=== PATIENT | female | born 1995 | race Caucasian/White ===

== ENCOUNTER 2023-05-31 14:50 | Outpatient (CLI) | payer OTHER | END 2023-05-31 14:51 | disposition home or self-care (01) | LOC: LAB.N 14:50 | PROVIDERS: ATTEND Nurse Practitioner | DX: O09.813 Supervision of pregnancy resulting from assisted reproductive technology, third trimester (principal) | CPT/HCPCS: 36415; 82950 ==

== ENCOUNTER 2023-06-03 11:40 | Outpatient (CLI) | payer OTHER ==
--- NOTE | 2023-06-04 15:11 | Ultrasound Report ---
PROCEDURE: OB F/U or Repeat INDICATIONS: UTERINE SIZE DATE DISCREPENCY OUTSIDE/PRIOR DATING DATA: Last menstrual period (LMP): IVF (all previous exams done in [place]). IVF-based estimated date of delivery (RENNY): 07/29/2023 (per report). First dating scan (date and location): 06/03/2023 ([facility]). Estimated date of delivery (RENNY) from first dating scan: 07/28/2023. TECHNIQUE: Real-time scanning was performed of the fetus, with image documentation and biometric measurements. Endovaginal scanning: Not performed. COMPARISON: None. FINDINGS: General: A single living intrauterine gestation is present. Presentation: Breech Placenta: Placental position is anterior, without previa. Amniotic fluid index: 19.2 cm, within normal limits for gestational age (79%). heart rate: 145 beats per minute. Maternal cervical canal: 4.4 cm long and closed; normal length is 2.5 cm or more. biometrics: Biparietal diameter: 8.25 cm, 33 weeks and 1 day Head circumference: 30.47 cm, 33 weeks and 6 days Abdominal circumference: 28.02 cm, 32 weeks and 0 days Femur length: 5.63 cm, 29 weeks and 4 days Estimated gestational age from initial scan: 32 weeks and 1 day Composite gestational age from present scan: 32 weeks and 0 days Estimated weight and percentile: 1796.2 g, 26.4% Measurement variability in biometric dating: +/- 10 days from 12-20 weeks gestation, +/- 2 weeks from 20-30 weeks gestation, +/- 3 weeks at 30 weeks gestation or more. Other: The chest/diaphragm, stomach/abdomen, bilateral renal regions, placental cord insertion, urina ry bladder/pelvis are grossly within normal limits. The remainder of the anatomy was not examin ed. The bilateral ovaries are unremarkable. The placenta cord index is 2.25. The mid placenta cord index is 1.89. The abdomen placenta cord index is 2.06. IMPRESSION: 1. Single living intrauterine gestation in breech presentation. Placenta is anterior without previa. Normal amniotic fluid. 2. Estimated gestational age from present scan is 32 weeks and 0 days. Fetus is in the 26.4th percent ile for weight. 3. Limited anatomic survey is normal, as described above. Reviewed by: Tanya Waddell MD on 06/04/2023 3:10 PM PDT Approved by: Tanya Waddell MD on 06/04/2023 3:10 PM PDT Station ID: [id number]
== END 2023-06-03 11:41 | disposition home or self-care (01) ==
LOC: DI 11:40
PROVIDERS: ATTEND Nurse Practitioner
DX: O26.843 Uterine size-date discrepancy, third trimester (principal); Z3A.32 32 weeks gestation of pregnancy

== ENCOUNTER 2023-07-02 06:45 | Outpatient (CLI) | payer OTHER ==
--- NOTE | 2023-07-02 08:58 | PROVIDER PROGRESS NOTE ---
- HPI Chief Complaint: Decreased movement Current : Vital Signs Temperature 98.1 F 07/02/23 07:06 Heart Rate 103 H 07/02/23 07:06 Respiratory Rate 18 07/02/23 07:06 Blood Pressure 118/87 H 07/02/23 07:06 Temperature 98.1 F 07/02/23 07:06 Heart Rate 103 H 07/02/23 07:06 Respiratory Rate 18 07/02/23 07:06 Blood Pressure 118/87 H 07/02/23 07:06 O2 Saturation If not protocol: Oxygen Flow, liters/minute - Procedures OB Procedure Performed: NST Diagnosis/Indication for NST: Decreased movement NST Procedure: NST at 36 weeks for decreased movement 140, moderate variability, positive accelerations, no decelerations Reactive NST Service Date of procedure: 07/02/23 - Plan Plan: Patient is a G1, P0 presenting at 36 weeks for decreased movement. She states she has been feeling baby move but movements have not been as strong as they were previously. She denies contractions, vaginal bleeding, leakage of fluid. This is an IVF . She is scheduled for weekly NSTs starting this week. NST on labor and delivery is reactive and biophysical profile is 8 out of 8. I reviewed kick counting with patient and advised to return to labor and delivery at any time for decreased movement, vaginal bleeding, contractions, leakage of fluid, or any other concerns.
--- NOTE | 2023-07-02 09:03 | Ultrasound Report ---
PROCEDURE: OB Biophysical Profile INDICATIONS: Decrease FM OUTSIDE/PRIOR DATING DATA: Last menstrual period (LMP): IVF. LMP-based estimated date of delivery (RENNY): 07/29/2023 based on IVF previous records not available for comparison. First dating scan (date and location): 06/03/2023. Estimated date of delivery (RENNY) from first dating scan: 07/28/2023. TECHNIQUE: Real-time scanning was performed of the fetus, with image documentation and biometric edgar surements. Biophysical profile was also obtained. COMPARISON: 06/03/2023 FINDINGS: General: A single living intrauterine gestation is present. Presentation: Vertex Placenta: Placental position is anterior, without previa. Amniotic fluid index: 10.5 cm, within normal limits for gestational age. heart rate: 147 beats per minute. Maternal cervical canal: 3.6 cm long; normal length is 2.5 cm or more. biometrics: Estimated gestational age from initial scan: 36 weeks 2 days Biophysical profile: Tone: 2 points. Movement: 2 points. Respiration: 2 points. Largest pocket of fluid: 2 points. Umbilical artery Doppler: 2.2, 2.1, 1.7 IMPRESSION: Single live intrauterine with gestational age 36 weeks 2 days. BPP 8 out of 8 Reviewed by: Mari Hernandez MD on 07/02/2023 9:02 AM PST Approved by: Mari Hernandez MD on 07/02/2023 9:02 AM PST Station ID: [id number]
[2023-07-02 10:03] VITALS: BP 118/84; O2SAT 100
== END 2023-07-02 09:10 | disposition home or self-care (01) ==
LOC: WFO 06:45 → FBP 07:03 → WFO 09:10
PROVIDERS: ATTEND Obstetrics & Gynecology Obstetrics
DX: O36.8130 Decreased fetal movements, third trimester, not applicable or unspecified (principal); O09.813 Supervision of pregnancy resulting from assisted reproductive technology, third trimester; Z3A.36 36 weeks gestation of pregnancy
CPT/HCPCS: 59025; 99213; 99215

== ENCOUNTER 2023-07-05 14:59 | Outpatient (CLI) | payer OTHER ==
--- NOTE | 2023-07-05 18:17 | Ultrasound Report ---
PROCEDURE: OB Biophysical Profile INDICATIONS: IVF OUTSIDE/PRIOR DATING DATA: IVF Clinical estimated date of delivery (RENNY): 07/29/2023. First dating scan (date and location): 06/03/2023. Estimated date of delivery (RENNY) from first dating scan: 07/28/2023. The below data below was generated using the sonographic RENNY of 07/28/2023 TECHNIQUE: Real-time scanning was performed of the fetus, with image documentation. Biophysical pro file was also obtained. Endovaginal scanning: Not performed COMPARISON: 06/03/2023, 07/02/2023 FINDINGS: General: A single living intrauterine gestation is present. Presentation: Cephalic Placenta: Placental position is anterior, without previa. Amniotic fluid index: 12.6 cm, largest pocket is 3.7 cm, normal for gestational age. heart rate: 123 beats per minute. Maternal cervical canal: Not well seen Biophysical profile: Tone: 2 points. Movement: 2 points. Respiration: 2 points. Largest pocket of fluid: 2 points. Umbilical artery Doppler: 3.3, 2.36, 3.0 IMPRESSION: 1. Single living intrauterine . 2. Normal biophysical profile score, 8 out of 8. 3. Normal amniotic fluid volume. Reviewed by: Merary Jackson MD on 07/05/2023 6:15 PM PST Approved by: Merary Jackson MD on 07/05/2023 6:15 PM PST Station ID: [id number]
== END 2023-07-05 15:00 | disposition home or self-care (01) ==
LOC: DI 14:59
PROVIDERS: ATTEND Nurse Practitioner
DX: O09.813 Supervision of pregnancy resulting from assisted reproductive technology, third trimester (principal); Z3A.00 Weeks of gestation of pregnancy not specified

== ENCOUNTER 2023-07-05 15:23 | Outpatient (CLI) | payer OTHER ==
--- NOTE | 2023-07-05 15:50 | Labor Flowsheet ---
Labor Flowsheet Datetime Report Generated by CPN: 07/05/2023 15:50 Datetime: 07/05/2023 15:41 VITAL SIGNS NBP Sys/Sade/Mean (mmHg): 123 : 81 : 89 Pulse: 77 COMMUNICATION LaborFlag: Antepartum
[2023-07-05 16:20] VITALS: BP 123/81
--- NOTE | 2023-07-17 14:01 | PROCEDURE REPORT ---
- HPI Diagnosis/Indication for NST: Other Current EDU 07/29/23 Gestation 36 Weeks and 4 Days 1 Para 0 Vital Signs Temperature 98.4 F 07/05/23 16:02 Heart Rate 77 07/05/23 16:02 Respiratory Rate 16 07/05/23 16:02 Blood Pressure 123/81 H 07/05/23 16:02 Temperature 98.4 F 07/05/23 16:02 Heart Rate 77 07/05/23 16:02 Respiratory Rate 16 07/05/23 16:02 Blood Pressure 123/81 H 07/05/23 16:02 O2 Saturation If not protocol: Oxygen Flow, liters/minute - NST Procedure NST Procedure Start Date 07/05/23 Start Time 15:31 Stop Time 15:52 Vibroacoustic Stimulation Used No Patient States Movement Yes 135 mod kd + A cells no D cells reactive - Results and Plan Findings/Impression: reactive NST Plan: continue scheduled ANC precautions reviewed
== END 2023-07-05 16:05 | disposition home or self-care (01) ==
LOC: WFO 15:23 → FBP 15:25 → WFO 16:05
PROVIDERS: ATTEND Obstetrics & Gynecology
DX: O09.813 Supervision of pregnancy resulting from assisted reproductive technology, third trimester (principal); Z3A.36 36 weeks gestation of pregnancy; Z36.85 Encounter for antenatal screening for Streptococcus B
CPT/HCPCS: 59025; 87797

== ENCOUNTER 2023-07-05 15:42 | Outpatient (CLI) | payer OTHER | END 2023-07-05 15:43 | disposition home or self-care (01) | LOC: LAB.WC 15:42 | PROVIDERS: ATTEND Obstetrics & Gynecology | DX: Z36.85 Encounter for antenatal screening for Streptococcus B (principal) | CPT/HCPCS: 87797 ==

== ENCOUNTER 2023-07-08 12:08 | Outpatient (CLI) | payer OTHER ==
[2023-07-08 12:30] VITALS: BP 123/84
--- NOTE | 2023-07-08 13:08 | PROCEDURE REPORT ---
- HPI Diagnosis/Indication for NST: Other (IVF , Advanced maternal age) Current EDU 07/28/23 Gestation 37 Weeks and 1 Days 1 Para 0 Vital Signs Temperature 97.7 F 07/08/23 12:27 Heart Rate 88 07/08/23 12:27 Respiratory Rate 18 07/08/23 12:27 Blood Pressure 123/84 H 07/08/23 12:27 Temperature 97.7 F 07/08/23 12:27 Heart Rate 88 07/08/23 12:27 Respiratory Rate 18 07/08/23 12:27 Blood Pressure 123/84 H 07/08/23 12:27 O2 Saturation If not protocol: Oxygen Flow, liters/minute - NST Procedure NST Procedure Start Date 07/08/23 Start Time 12:19 Stop Time 12:45 Patient States Movement Yes 37+1 weeks 130, moderate variability, +accels, no decels reactive NST
== END 2023-07-08 13:00 | disposition home or self-care (01) ==
LOC: WFO 12:08 → FBP 12:09 → WFO 13:00
PROVIDERS: ATTEND Obstetrics & Gynecology Obstetrics
DX: O09.813 Supervision of pregnancy resulting from assisted reproductive technology, third trimester (principal); Z3A.37 37 weeks gestation of pregnancy
CPT/HCPCS: 59025

== ENCOUNTER 2023-07-12 06:56 | Outpatient (CLI) | payer OTHER ==
--- NOTE | 2023-07-12 11:25 | Ultrasound Report ---
PROCEDURE: OB Biophysical Profile INDICATIONS: IVF OUTSIDE/PRIOR DATING DATA: Last menstrual period (LMP): 10/23/2022. First dating scan (date and location): 07/12/2023. Estimated date of delivery (RENNY) from first dating scan: 07/28/2023. The below data below was generated using the IVF transfer RENNY of 07/29/2023 TECHNIQUE: Real-time scanning was performed of the fetus, with image documentation and biometric edgar surements. Biophysical profile was also obtained. COMPARISON: 07/05/2023, 07/02/2023 FINDINGS: General: A single living intrauterine gestation is present. Presentation: Cephalic Placenta: Placental position is anterior, without previa. Amniotic fluid index: 11.6 cm, 32% for gestational age. heart rate: 129, 145 beats per minute. Maternal cervical canal: 4.0 cm long; normal length is 2.5 cm or more. biometrics: Biparietal diameter: 8.9 cm. 36 weeks 0 days. 27th percentile Head circumference: 32.9 cm. 37 weeks 2 days. 22nd percentile. Abdominal circumference: 31.9 cm. 35 weeks 6 days. 18th percentile. Femur length: 7.1 cm. 36 weeks 4 days. 26th percentile. Estimated gestational age from initial scan: 37 weeks 4 days. Composite gestational age from present scan: 36 weeks 3 days. Estimated weight and percentile: 2874 g. 25th percentile. Measurement variability in biometric dating: +/- 10 days from 12-20 weeks gestation, +/- 2 weeks from 20-30 weeks gestation, +/- 3 weeks at 30 weeks gestation or later. Biophysical profile: Tone: 2 points. Movement: 2 points. Respiration: 2 points. Largest pocket of fluid: 2 points. Umbilical artery Doppler: 1.94, 2.03, 1.97. IMPRESSION: 1. Estimated weight 25th percentile. 2. BPP score 8/8. Reviewed by: Prakash Cam on 07/12/2023 11:24 AM PST Approved by: Prakash Cam on 07/12/2023 11:24 AM PST Station ID: [id number]
--- NOTE | 2023-07-12 11:41 | Ultrasound Report ---
PROCEDURE: OB F/U or Repeat INDICATIONS: IVF , SUPERVISION OF , EFW OUTSIDE/PRIOR DATING DATA: Last menstrual period (LMP): Unknown. IVF-based estimated date of delivery (RENNY): 07/29/2023. First dating scan (date and location): 06/03/2023. Estimated date of delivery (RENNY) from first dating scan: 07/28/2023. The below data below was generated using the working RENNY of 07/28/2023 TECHNIQUE: Ultrasound of the gravid uterus was performed and recorded. COMPARISON: 07/02/2023 FINDINGS: General: A single live intrauterine gestation is present. Presentation: Cephalic Placenta: Placental position is anterior without previa. Amniotic fluid index: 12.6 cm, 39.4 percentile for gestational age. heart rate: 123 beats per minute. Maternal cervical canal: Not well visualized Estimated gestational age by working dates: 36 week 5 day Biophysical profile score: 8 out of 8 S/D ratios: 3.0, 2.4, 3.3 Other: The visualized anatomy within normal limits IMPRESSION: Single live intrauterine consistent with 36 week 5 day gestation by current ultrasound Reviewed by: Gamaliel Campa MD on 07/12/2023 10:40 AM [facility] Approved by: Gamaliel Campa MD on 07/12/2023 10:40 AM [facility] Station ID: [id number]
== END 2023-07-12 06:57 | disposition home or self-care (01) ==
LOC: DI 06:56
PROVIDERS: ATTEND Nurse Practitioner
DX: O09.813 Supervision of pregnancy resulting from assisted reproductive technology, third trimester (principal); Z3A.36 36 weeks gestation of pregnancy

== ENCOUNTER 2023-07-12 07:38 | Outpatient (CLI) | payer OTHER ==
[2023-07-12 07:57] VITALS: BP 127/79; O2SAT 100
--- NOTE | 2023-07-12 09:34 | PROCEDURE REPORT ---
- HPI Diagnosis/Indication for NST: Other Current EDU 07/29/23 Gestation 37 Weeks and 4 Days 1 Para 0 Vital Signs Temperature 98.1 F 07/12/23 07:50 Heart Rate 86 07/12/23 07:50 Respiratory Rate 16 07/12/23 07:50 Blood Pressure 127/79 07/12/23 07:50 O2 Saturation 100 07/12/23 07:50 Temperature 98.1 F 07/12/23 07:50 Heart Rate 86 07/12/23 07:50 Respiratory Rate 16 07/12/23 07:50 Blood Pressure 127/79 07/12/23 07:50 O2 Saturation 100 07/12/23 07:50 If not protocol: Oxygen Flow, liters/minute - NST Procedure NST Procedure Start Date 07/12/23 Start Time 07:45 Stop Time 08:10 Vibroacoustic Stimulation Used No Patient States Movement Yes 130 mod kd + A cells no D cells. - Results and Plan Findings/Impression: reactive NST Plan: OK to D/C home with precautions and instructions to continue scheduled ANC.
== END 2023-07-12 08:15 | disposition home or self-care (01) ==
LOC: WFO 07:38 → FBP 07:39 → WFO 08:15
PROVIDERS: ATTEND Obstetrics & Gynecology
DX: O09.813 Supervision of pregnancy resulting from assisted reproductive technology, third trimester (principal); Z3A.37 37 weeks gestation of pregnancy
CPT/HCPCS: 59025

== ENCOUNTER 2023-07-15 09:19 | Outpatient (CLI) | payer OTHER ==
[2023-07-15 09:36] VITALS: BP 123/81
--- NOTE | 2023-07-15 09:42 | PROCEDURE REPORT ---
- HPI Vital Signs Temperature 98.1 F 07/15/23 09:31 Heart Rate 90 07/15/23 09:31 Respiratory Rate 16 07/15/23 09:31 Blood Pressure 123/81 H 07/15/23 09:31 Temperature 98.1 F 07/15/23 09:31 Heart Rate 90 07/15/23 09:31 Respiratory Rate 16 07/15/23 09:31 Blood Pressure 123/81 H 07/15/23 09:31 O2 Saturation If not protocol: Oxygen Flow, liters/minute - Results and Plan Plan: Patient is a 27-year-old G1, P0 at 38 weeks gestation here for scheduled NST. NST Performed 07/15/2023 NST Read 07/15/2023 FHT: 140 bpm baseline, moderate variability, accelerations present, no decelerations. Reactive NST [place]: Quiescent Diagnosis 38 weeks gestation IVF Continue with twice-weekly NST.
== END 2023-07-15 10:00 | disposition home or self-care (01) ==
LOC: WFO 09:19 → FBP 09:21 → WFO 10:00
PROVIDERS: ATTEND Obstetrics & Gynecology
DX: O09.813 Supervision of pregnancy resulting from assisted reproductive technology, third trimester (principal); Z3A.38 38 weeks gestation of pregnancy
CPT/HCPCS: 59025

== ENCOUNTER 2023-07-18 06:59 | Outpatient (CLI) | payer OTHER ==
--- NOTE | 2023-07-18 20:18 | Ultrasound Report ---
PROCEDURE: OB Biophysical Profile INDICATIONS: IVF OUTSIDE/PRIOR DATING DATA: Last menstrual period (LMP): 10/23/2022. First dating scan (date and location): 07/12/2023. Estimated date of delivery (RENNY) from first dating scan: 07/28/2023. The below data below was generated using the IVF transfer RENNY of 07/29/2023. TECHNIQUE: Real-time scanning was performed of the fetus, with image documentation and biometric edgar surements. Biophysical profile was also obtained. COMPARISON: OB ultrasound, 07/12/2023. FINDINGS: General: A single living intrauterine gestation is present. Presentation: Cephalic Placenta: Placental position is anterior, without previa. Amniotic fluid index: 14.5 cm, 60% for gestational age; largest pocket 8.6 cm. heart rate: 143 beats per minute. Maternal cervical canal: 4.5 cm long; normal length is 2.5 cm or more. biometrics: Not performed. Estimated gestational age from initial scan: 38 weeks 3 days. Measurement variability in biometric dating: +/- 10 days from 12-20 weeks gestation, +/- 2 weeks from 20-30 weeks gestation, +/- 3 weeks at 30 weeks gestation or later. Biophysical profile: Tone: 2 points. Movement: 2 points. Respiration: 2 points. Largest pocket of fluid: 2 points. Umbilical artery Doppler: S/D = 1.87-2.16. IMPRESSION: 1. A single living IUP redemonstrated. 2. biophysical profile score 8 out of 8. 3. Normal cord Doppler ultrasound exam. 4. MAGALIE 14.5 cm , 60% for gestational age. Reviewed by: Reji Nichole MD on 07/18/2023 8:17 PM PST Approved by: Reji Nichole MD on 07/18/2023 8:17 PM PST Station ID: [id number]
== END 2023-07-18 07:00 | disposition home or self-care (01) ==
LOC: DI 06:59
PROVIDERS: ATTEND Nurse Practitioner
DX: O09.813 Supervision of pregnancy resulting from assisted reproductive technology, third trimester (principal); Z3A.38 38 weeks gestation of pregnancy

== ENCOUNTER 2023-07-18 07:32 | Outpatient (CLI) | payer OTHER ==
[2023-07-18 07:55] VITALS: BP 114/75
--- NOTE | 2023-07-18 09:12 | PROCEDURE REPORT ---
- HPI Diagnosis/Indication for NST: Other Vital Signs Temperature 98.1 F 07/18/23 07:50 Heart Rate 80 07/18/23 07:50 Respiratory Rate 16 07/18/23 07:50 Blood Pressure 114/75 07/18/23 07:50 Temperature 98.1 F 07/18/23 07:50 Heart Rate 80 07/18/23 07:50 Respiratory Rate 16 07/18/23 07:50 Blood Pressure 114/75 07/18/23 07:50 O2 Saturation If not protocol: Oxygen Flow, liters/minute - NST Procedure NST Procedure Start Time 09:29 Stop Time 09:50 135 mod kd + A cells no D cells reactive - Results and Plan Findings/Impression: reactive NST BPP 03/28 total: 05/30 Plan: continue with scheduled ANC, f/u appt tomorrow and IOL on monday. precautions reviewed.
== END 2023-07-18 09:06 | disposition home or self-care (01) ==
LOC: WFO 07:32 → FBP 07:34 → WFO 09:06
PROVIDERS: ATTEND Obstetrics & Gynecology
DX: O09.813 Supervision of pregnancy resulting from assisted reproductive technology, third trimester (principal); Z3A.38 38 weeks gestation of pregnancy
CPT/HCPCS: 59025

== ENCOUNTER 2023-07-22 13:32 | Inpatient (IN) | payer OTHER ==
--- NOTE | 2023-07-22 14:11 | HISTORY & PHYSICAL EXAMINATION ---
Admit History - Visit Reason Visit Reason: Other (scheduled IOL at 39w for IVF ) - : 2 Parity: 0 : 1 Care: positive: [facility] Risk/History: positive: Other (IVF embryo transfer) Complications This : positive: None, Other Smoking Status: Never smoker - Mother's Labs Mother's Blood Type: positive: O Mother's RH: positive: Positive GBS: positive: Group B Step Negative Rubella Status: positive: Immune - Other Maternal History Other Maternal History: ANL: O+/abneg/RI/RPRNR/HepBneg/HIVneg/GCCTnegneg/GBS negative PMH: denies PSH: denies POB: MAB x1 PGYN: no h/o abnormal pap no h/o STDs no h/o problems with ovaries or uterus pt with PCOS. Meds: PNV, FeSO4 All: NKDA Soc: neg x3, lives with Fam: unremarkable LMP: 10/23/22 RENNY by LMP: US: Final RENNY: 07/29/23 by IVF transfer IVF - 2'2 PCOS, -- needs NSTs from 36 weeks on -- ordered, pt to call to schedule. -- discussed IOL at 39 weeks -- SCHEDULED 07/22 is deployed now, in [employer] [place] ship [place]. He'll be back in late Aug. her mom will be with her from [place] at -- [place] for one month post . and his family lives in [place]. Pre- Weight:145 BMI: 21.6 Blood type: O+ Antibody: neg CBC: PLT 236 HCT 37.2 HGB 12.5 RUB: imm VZV: imm HBsAg: neg HepC: neg RPR/AB-EIA:NR HIV: neg PAP: 08/10/22 - NILM GC/CT: neg HSV: denies self/partner Genetic testin01/11/23 neg Covid: x3, July 05, 2023 Flu: July 05, 2023 RSV: 06/08/23 FAS: Placenta:anterior Cord: MAGALIE:19.2 EFW:1796.2g 26.4%ile 50gm OGCT: 137, discussed that this is borderline and she shoudl watch her sugar. TDAP: 06/08/23 Breast Pump:06/08 GBS:Negative ultrasound 06/03/23 26%ile. magalie 19. Delivery plan: IOL @ 39 weeks, Contraception: maybe - was on the pill which worked well for her, Levora, - NST Procedure NST Procedure Start Time 07:46 Stop Time 09:02 Physical - Abdominal Exam Contraction Frequency (min/apart): acontractile Uterine Resting Tone: positive: Soft - Monitoring Heart Rate Baseline: 130 Strip Review: positive: Category I - Presentation Presentation: positive: Vertex - Vaginal Exam Membranes: positive: Membranes intact Dilation (in cm): 0 Effacement (%): 0 Station: positive: -3 Cervical Position: positive: Posterior - Speculum Exam Speculum Exam Performed: positive: No Plan for Labor - Plan For Labor I expect patient to be DC'd or transferred within 96 hours.: Yes Plan for Labor: 27yo at 39w for IOL 2'2 IVF FWB - cat 1 - OK for intermittent monitoring IOL - start with miso - augment with pit if indicated - anticipate
[2023-07-22] MEDS ORDERED: lidocaine 1% 20 ML MDV ID PRN (14:35)
[2023-07-22] MEDS ORDERED: NIFEdipine 10 MG CAPSULE PO PRN (14:35)
[2023-07-22] MEDS ORDERED: LABETALOL 20 MG/4 ML SYRINGE IVP PRN ×3 (14:35)
[2023-07-22] MEDS ORDERED: METHYLERGONOVINE 0.2 MG/ML VIAL IM PRN (14:35)
[2023-07-22] MEDS ORDERED: TRANEXAMIC ACID IN NACL 1,000 MG/100 ML BAG IV PRN (14:35)
[2023-07-22] MEDS ORDERED: fentaNYL 100 MCG/2 ML VIAL IVP PRN (14:35)
[2023-07-22] MEDS ORDERED: miSOPROStoL 200 MCG TABLET BC PRN (14:35)
[2023-07-22] MEDS ORDERED: OXYTOCIN/SODIUM CHLORIDE 500 ML IV PRN ×2 (14:35)
[2023-07-22] MEDS ORDERED: CARBOPROST TROMETHAMINE 250 MCG/ML AMP IM PRN (14:35)
[2023-07-22] MEDS ORDERED: miSOPROStoL 200 MCG TABLET PR ONE (14:35)
[2023-07-22] MEDS ORDERED: ONDANSETRON 4 MG/2 ML VIAL IVP PRN (14:35)
[2023-07-22] MEDS ORDERED: hydrALAZINE INJ 20 MG/ML VIAL IVP PRN ×2 (14:35)
[2023-07-22] MEDS ORDERED: SODIUM CHLORIDE FLUSH 0.9% 10 ML SYRINGE IVP PRN (14:35)
[2023-07-22] MEDS ORDERED: OXYTOCIN 10 UNIT/ML VIAL IM PRN (14:35)
[2023-07-22] MEDS: miSOPROStoL 100 MCG TABLET VG SCH ×2 (15:04→21:28)
[2023-07-22 15:05] LABS: BASOPHILS % (AUTO) 0.3 %; EOSINOPHILS # (AUTO) 0.1 10^3/uL (0.0-0.7); EOSINOPHILS % (AUTO) 1.2 %; HGB - HEMOGLOBIN 12.6 g/dL (12.0-16.0); LYMPHOCYTES # (AUTO) 2.1 10^3/uL (1.5-3.5); LYMPHOCYTES % (AUTO) 19.5 %; MEAN CORPUSCULAR HEMOGLOBIN 31.4 pg (27.0-31.0); MEAN CORPUSCULAR HGB CONC 33.2 g/dL (32.0-36.0); MEAN CORPUSCULAR VOLUME 94.8 fL (81.0-99.0); MEAN PLATELET VOLUME 9.7 fL (7.9-10.8); MONOCYTES # (AUTO) 0.7 10^3/uL (0.0-1.0); MONOCYTES % (AUTO) 6.2 %; NEUTROPHILS # (AUTO) 7.7 10^3/uL (1.5-6.6); NEUTROPHILS % (AUTO) 72.4 %; PLT - PLATELET COUNT 260 10^3/uL (130-450); RED BLOOD COUNT 4.01 10^6/uL (4.20-5.40); RED CELL DISTRIBUTION WIDTH 13.1 % (12.0-15.0); WHITE BLOOD COUNT 10.7 x10^3/uL (4.8-10.8)
[2023-07-23] MEDS: miSOPROStoL 100 MCG TABLET VG SCH ×3 (01:26→09:50)
[2023-07-23] MEDS: LACTATED RINGERS 1,000 ML IV SCH ×2 (09:14→19:23)
--- NOTE | 2023-07-23 16:12 | PROVIDER PROGRESS NOTE ---
Labor Progress Note - Uterine Monitoring Uterine Monitoring Mode: positive: External toco Contraction Frequency (min/apart): Q3 Contraction Intensity: positive: Mild Uterine Resting Tone: positive: Soft - Monitoring Monitor Mode: positive: External ultrasound Heart Rate Baseline: 135 Heart Rate Variability: positive: Moderate (6-25 bmp) Accelerations: positive: Present, 15x15 Decelerations: positive: None, Variable Strip Review: positive: Category II - Labor Progress Note Labor Progress Note/Additional Text: cervical exam deferred, was 1cm per RN Pt now on 2u of pitocin, minimal change with 5 doses of misoprostol, will use pitocin and continue induction both mom and baby doing well. cat 2 strip at times, though primarily category 1. Overall reassuring.
[2023-07-23] MEDS ORDERED: ROPIVACAINE 0.2% 200 MG/100 ML BAG EP ONE (23:44)
[2023-07-23] MEDS ORDERED: LIDOCAINE 2%-EPI 1:100000 20 ML MDV ONE (23:44)
[2023-07-24] MEDS ORDERED: diphenhydrAMINE INJ 50 MG/ML VIAL IVP PRN ×2 (00:18→09:53)
[2023-07-24] MEDS ORDERED: ROPIVACAINE 0.2% 200 MG/100 ML BAG EP PRN (00:18)
[2023-07-24] MEDS ORDERED: NALBUPHINE 10 MG/ML AMP IVP PRN ×2 (00:18→09:53)
[2023-07-24] MEDS ORDERED: ONDANSETRON 4 MG/2 ML VIAL IVP PRN ×2 (00:18→08:52)
[2023-07-24] MEDS ORDERED: ePHEDrine 50 MG/ML VIAL IVP PRN ×2 (00:18→08:52)
[2023-07-24] MEDS ORDERED: LACTATED RINGERS 500 ML IV ONE (00:18)
[2023-07-24] MEDS ORDERED: NALOXONE 0.4 MG/ML VIAL IVP PRN ×4 (00:18→09:53)
[2023-07-24] MEDS ORDERED: METOCLOPRAMIDE 10 MG/2 ML VIAL IVP PRN ×2 (00:18→08:52)
--- NOTE | 2023-07-24 00:21 | ANESTHESIA ---
Pre-Anesthesia VS, & Labs - Diagnosis active labor/pain - Procedure labor epidural Vital Signs: Temp Pulse Resp BP Pulse Ox O2 Flow Rate 36.5 C 77 18 125/84 H 07/23/23 07:20 07/23/23 07:20 07/23/23 07:20 07/23/23 07:20 Height: 5 ft 6 in Weight (kg): 77.111 kg Body Mass Index: 27.4 BMI Classification: Overweight - NPO Other - Is Patient ?: Yes - Lab Results Current Lab Results: Laboratory Tests 07/22/23 16:38: Blood Type Recheck O POSITIVE 07/22/23 14:00: Blood Type O POSITIVE, Antibody Screen NEGATIVE 07/22/23 14:00: WBC 10.7, RBC 4.01 L, Hgb 12.6, Hct 38.0, MCV 94.8, MCH 31.4 H, MCHC 33.2, RDW 13.1, Plt Count 260, MPV 9.7, Neut # (Auto) 7.7 H, Lymph # (Auto) 2.1, [place] # (Auto) 0.7, Eos # (Auto) 0.1, Baso # (Auto) 0.0, Absolute Nucleated RBC 0.00, Nucleated RBC % 0.0 Fish Bones: 07/22/23 14:00 Home Medications and Allergies Active Medications Carboprost Tromethamine (Carboprost Tromethamine 250 Mcg/Ml Amp) 250 mcg IM Q15M PRN PRN Reason: Step 4: Hemorrhage protocol Stop: 07/27/23 14:36 Fentanyl (Fentanyl 100 Mcg/2 Ml Vial) 50 mcg IVP Q1H PRN PRN Reason: Severe Pain (Level 7-10) Hydralazine HCl (Hydralazine Inj 20 Mg/Ml Vial) 5 - 20 mg IVP Q20M PRN; Protocol PRN Reason: SBP >160 or DBP >110 Hydralazine HCl (Hydralazine Inj 20 Mg/Ml Vial) 10 mg IVP .ONCE PRN; Protocol PRN Reason: Step 9 of Labetalol protocol Stop: 07/27/23 14:40 Oxytocin/Sodium Chloride (Pitocin/Sodium Chloride) 500 mls @ 999 mls/hr IV PRN PRN; Protocol PRN Reason: POST- HEMORR PREVENTION Stop: 07/27/23 14:39 Last Titration: 07/23/23 19:00 Dose: 5 milliunit/min, 5 mls/hr Tranexamic Acid (Tranexamic 1,000 Mg/100ml-Nacl) 1,000 mg in 100 mls @ 600 mls/hr IV .ONCE PRN PRN Reason: EBL >1200mL and within 3hr Stop: 07/27/23 14:36 Oxytocin/Sodium Chloride (Pitocin/Sodium Chloride) 500 mls @ 999 mls/hr IV PRN PRN; Protocol PRN Reason: POST- HEMORR PREVENTION Lactated Ringer's (Lr) 1,000 mls @ 100 mls/hr IV .Q10H [facility] Last Admin: 07/23/23 19:23 Dose: 100 mls/hr Labetalol HCl (Labetalol 20 Mg/4 Ml Syringe) 20 - 80 mg IVP Q10M PRN; Protocol PRN Reason: SBP >160 or DBP >110 Labetalol HCl (Labetalol 20 Mg/4 Ml Syringe) 20 mg IVP .ONCE PRN; Protocol PRN Reason: Step 9 of nifedipine protocol Stop: 07/27/23 14:40 Labetalol HCl (Labetalol 20 Mg/4 Ml Syringe) 40 mg IVP .ONCE PRN; Protocol PRN Reason: Step 9 of hydrALAZine protocol Stop: 07/27/23 14:40 Lidocaine HCl (Lidocaine 1% 20 Ml Mdv) 20 ml ID .ONCE PRN PRN Reason: PERINEAL REPAIR Stop: 07/27/23 14:36 Methylergonovine Maleate (Methylergonovine 0.2 Mg/Ml Vial) 0.2 mg IM .ONCE PRN PRN Reason: Step 2: Hemorrhage protocol Stop: 07/27/23 14:36 Misoprostol (Misoprostol 200 Mcg Tablet) 800 mcg BC .ONCE PRN PRN Reason: Step 3: Hemorrhage protocol Stop: 07/27/23 14:36 Misoprostol (Misoprostol 100 Mcg Tablet) 25 mcg VG Q4HR [facility] Last Admin: 07/23/23 09:50 Dose: 25 mcg Nifedipine (Nifedipine 10 Mg Capsule) 10 - 20 mg PO Q20M PRN; Protocol PRN Reason: SBP >160 or DBP >110 Ondansetron HCl (Ondansetron 4 Mg/2 Ml Vial) 4 mg IVP Q4HR PRN PRN Reason: Nausea / Vomiting Oxytocin (Oxytocin 10 Unit/Ml Vial) 10 unit IM .ONCE PRN PRN Reason: Step one: If no IV access Stop: 07/27/23 14:36 Sodium Chloride (Sodium Chloride Flush 0.9% 10 Ml Syringe) 10 ml IVP 0100,0900,1700 KIM Sodium Chloride (Sodium Chloride Flush 0.9% 10 Ml Syringe) 10 ml IVP PRN PRN PRN Reason: NEEDED PER PROVIDER ORDERS Allergies/Adverse Reactions: Allergies Allergy/AdvReac Type Severity Reaction Status Date / Time No Known Drug Allergies Allergy Verified 07/22/23 14:35 Anes History & Medical History - Anesthetic History Anesthesia Complications: reports: No previous complications Family history of Anesthesia Complications: Denies Family history of Malignant Hyperthermia: Denies - Medical History Cardiovascular: reports: None Pulmonary: reports: None Gastrointestinal: reports: None Urinary: reports: None Neuro: reports: None Musculoskeletal: reports: None Endocrine/Autoimmune: reports: None Blood Disorders: reports: None Skin: reports: None Smoking Status: Never smoker Psychosocial: reports: No issues indicated History of Cancer?: No - Obstetrical History : 2 Parity: 0 Events: reports: Other (IVF embryo transfer) Complications: reports: None, Other Exam General: Alert, Oriented x3, Cooperative Dental: WNL Mouth Openin Fingerbreadth Neck Mobility: Normal Mallampati classification: I Thyromental Distance: 4-6 cm Respiratory: Lungs clear Cardiovascular: Regular rate Plan Anesthesia Type: Epidural Consent for Procedure(s) Verified and Reviewed: Yes Code Status: Attempt Resuscitation ASA classification: 2-Mild systemic disease Is this case an emergency?: No
[2023-07-24] MEDS ORDERED: LIDOCAINE 2%-EPI 1:100000 20 ML MDV ONE ×2 (02:29→08:14)
[2023-07-24] MEDS: LACTATED RINGERS 1,000 ML IV SCH ×3 (03:04→21:27)
[2023-07-24] MEDS: miSOPROStoL 100 MCG TABLET VG SCH ×2 (03:06→03:07)
[2023-07-24] MEDS: SODIUM CHLORIDE FLUSH 0.9% 10 ML SYRINGE IVP SCH ×2 (03:06→03:07)
--- NOTE | 2023-07-24 03:23 | PROVIDER PROGRESS NOTE ---
Labor Progress Note - Uterine Monitoring : 8 Contraction Intensity: positive: Moderate to strong Uterine Resting Tone: positive: Soft - Monitoring Heart Rate Baseline: 135 Heart Rate Variability: positive: Moderate (6-25 bmp) Accelerations: positive: Present, 15x15 Decelerations: positive: Variable Strip Review: positive: Category II - Vaginal Exam Dilation (in cm): 10 Effacement (%): 100 Station: 1 Cervical Position: Anterior - Labor Progress Note Labor Progress Note/Additional Text: Pt with deep variable d cells with ctx no improvement with position changes bulging membranes head not in pelvis called OR team in AROM with spinal needle clear fluid, slow AROM head brought into pelvis with strong pushing head brought to vacuumable station and no further deep variable d cells continue pushing re-start pitocin and anticipate .
[2023-07-24] MEDS: DEXTROSE 5%-0.9% NACL 1,000 ML IV SCH ×2 (06:58→21:26)
[2023-07-24] MEDS ORDERED: DEXTROSE 5%-0.45% NACL 1,000 ML IV SCH (07:00)
[2023-07-24] MEDS ORDERED: ceFAZolin 1 GM VIAL ONE (08:14)
[2023-07-24] MEDS ORDERED: PROPOFOL 200 MG/20 ML VIAL IVP ONE (08:14)
[2023-07-24] MEDS ORDERED: SUCCINYLCHOLINE 200 MG/10 ML VIAL ONE (08:14)
[2023-07-24] MEDS ORDERED: MIDAZOLAM 2 MG/2 ML VIAL ONE (08:15)
[2023-07-24] MEDS ORDERED: HYDROmorphone 1 MG/ML CARPUJECT ONE (08:17)
[2023-07-24] MEDS ORDERED: MORPHINE PF 5 MG/10 ML VIAL EP ONE (08:20)
[2023-07-24] MEDS ORDERED: MORPHINE PF 5 MG/10 ML VIAL ONE (08:23)
[2023-07-24] MEDS ORDERED: ROPIVACAINE 0.2% PF 10 ML VIAL ONE (08:35)
[2023-07-24] MEDS ORDERED: SODIUM CHLORIDE 0.9% 10 ML VIAL IVP ONE (08:35)
[2023-07-24] MEDS ORDERED: hydrALAZINE INJ 20 MG/ML VIAL IVP PRN ×2 (08:43)
[2023-07-24] MEDS ORDERED: LABETALOL 20 MG/4 ML SYRINGE IVP PRN ×3 (08:43)
[2023-07-24] MEDS ORDERED: OXYTOCIN/SODIUM CHLORIDE 500 ML IV PRN (08:43)
[2023-07-24] MEDS ORDERED: ACETAMINOPHEN 1,000 MG/100 ML 1,000 MG/100 ML BAG IV ONE (08:45)
[2023-07-24] MEDS ORDERED: KETOROLAC 30 MG/ML VIAL ONE (08:46)
[2023-07-24] MEDS ORDERED: ONDANSETRON 4 MG/2 ML VIAL ONE (08:46)
[2023-07-24] MEDS ORDERED: ATROPINE ABBOJECT 1 MG/10 ML SYRINGE IVP PRN (08:52)
[2023-07-24] MEDS ORDERED: MORPHINE 2 MG/ML CARPUJECT IVP PRN (08:52)
[2023-07-24] MEDS ORDERED: HYDROmorphone 0.5 MG/0.5 ML SYRINGE IVP PRN (08:52)
[2023-07-24] MEDS ORDERED: fentaNYL 100 MCG/2 ML VIAL IVP PRN (08:52)
[2023-07-24] MEDS ORDERED: AZITHROMYCIN INJ 500 MG in SODIUM CHLORIDE 0.9% 250 ML IV SCH (09:00)
[2023-07-24] MEDS ORDERED: LACTATED RINGERS 1,000 ML IV SCH (09:00)
[2023-07-24] MEDS ORDERED: LACTATED RINGERS 100 ML IV ONE (09:11)
--- NOTE | 2023-07-24 09:52 | ANESTHESIA POST OP EVALUATION ---
Anesthesia Post Eval - Post Anesthesia Eval Vitals: Last Vital Signs Temp 36.4 C L 07/24/23 09:40 Pulse 90 07/24/23 09:40 Resp 15 07/24/23 09:40 BP 125/86 H 07/24/23 09:40 Pulse Ox 99 07/24/23 09:40 O2 Flow Rate CV Function Including HR & BP: Stable Pain Control: Satisfactory Nausea & Vomiting: Negative Mental Status: Baseline Respiratory Status: Airway Patent Hydration Status: Satisfactory Anesthesia Complications: None
--- NOTE | 2023-07-24 11:39 | OPERATIVE REPORT ---
Operative Report - General Admit Date: 07/22/23 Procedure Date: 07/24/23 Planned Procedure: Stat 1LTCS via pfannensteil incision Pre-Op Diagnosis: IUP at 39w, IVF , NRFHT, failed VAVD, stat C/S for NRFHT Procedure Performed: 1LCTS under general anesthesia via pfannensteil skin incision Post Op Diagnosis: same as above - Procedure Note Primary Surgeon: flo Secondary Surgeon: belle mcclelland Anesthesia Provider: CAN Anesthesia Technique: Epidural, General ET tube, Regional block, Spinal Pathology: placenta IV Fluids (mL): 1,100 Estimated Blood Loss (mL): 600 Urine Output (mL): 50 (blood tinged) Indications: failed VAVD NRFHT bradycardia - Other Other Information/Narrative: OPERATIVE NOTE Pre-operative diagnosis: 1. IUP @ 39+ 2. NRFHT 3. Failed VAVD Procedure: STAT 1'LTCS via pfannensteil skin incision under general anesthesia Post-operative diagnosis: JOHNNY Surgeon: Flo Pack Operator: Belle Mcclelland Anesthesia: Epidural, bolussed, did not numb in time, and general was given. tap block after per SIDE PIECE COVERER. Findings: viable male , vertex presentation, Apgars 5/7/8, born at 0810 normal uterus normal tubes & ovaries bilaterally no notable adhesions Complications: None apparent EBL: 600cc UOP: 50cc blood tinged IVF: 1100cc Procedure in detail: After risks benefits and alternatives, as well as indication for procedure and anticipated post-operative recovery course, were discussed with the patient verbal informed consent was obtained for VAVD. Vacuum applied at 7:52 &20s, pop-off one 25s later, pop-off two 40s later, and pop-off three 60s later. Of note, there was a period of non-pulling between each pop-off, and a 40s period between pop-off 2 and pop-off 3. Total pulling time less than 1m20s, total pressure never exceeded the green kristen on the soft vacuum, coordinated pulling / pushing. Prior to VAVD pt was also consented for C/S, and OR team available and in-house. After final pop-off, hearts in the 70s - and decision for crash C/S made at 0754. head elevated into maternal pelvis in labor room before moving back to OR. Patient was taken immediately to the operating theater where her epidural was bolused, her skin was prepped with betadyne. Liu catheter was inserted in normal sterile fashion in the OR, where head was re- elevated by RN. Pt was prepared and draped in normal sterile fashion with betadyne. Anesthesia was tested and found to be inadequate. Patient was then put under general anesthesia at 0807. Skin incision at 0807. Prior to skin incision pt received recommended antibiotics - though azythromycin given intra-op instead of pre-op, surgical time out was performed, and all persons in the operating theater participated in time out and agreed. Count was performed. Pfannensteil skin incision made with scalpel. Carried down to level of fasia. Fascia incised and extended. Peritoneum entered without difficulty and surgical field extended with gentle lateral traction. Lower uterine segment identified, well developed. Uterine incision made with scalpel, uterus entered bluntly and incision extended bluntly. Surgeons right hand entered into lower uterine segment, presenting part could not be elevated, Maria L frog-legged the patient and pushed head up while surgeon also pulling from above, this was unsuccessful. Yayo then moved down below and pushed up while Spenser changed gloves and assisted from above. Significant effort with pulling from above and pushing from below to release head from pelvis. head brought to level of incision and infant delivered atraumatically. Baby cried briefly, cord milked x6, then cord clamped and cut x2, baby handed to awaiting cable puller, apgars as noted above. Placenta delivered manually. Uterus exteriorized and wrapped in moist lap. Uterine cavity cleaned with moist lap and found to be free of membranes or debris. Uterine incision closed with 0 vicryl, running suture, and subsequently imbricated with the same suture. Incision inspected, hemostatic. Gutters cleaned. Uterus returned to abdominal cavity. All inspected, hemostatic. Peritoneum reapproximated without suture. Muscles inspected, fascia inspected, hemostatic. Fascia closed with 0 looped PDS in running fashion. Subcutaneous tissue irrigated, and then closed with 2.0 vicryl in running fashion. Skin incision closed with subcuticular sutures with 4.0 vicryl. Pt and infant tolerated procedure well. All counts correct. Pt to PACU in stable condition.
[2023-07-24] MEDS: KETOROLAC 30 MG/ML VIAL IVP SCH ×2 (14:21→21:17)
[2023-07-24] MEDS ORDERED: ceFAZolin (2G) 2 GM in SODIUM CHLORIDE 0.9% MINIBAG 100 ML IV ONE (15:11)
[2023-07-24] MEDS: ACETAMINOPHEN 500 MG TABLET PO SCH ×2 (15:58→21:26)
[2023-07-24] MEDS: DOCUSATE SODIUM 100 MG CAPSULE PO SCH ×2 (21:17→21:27)
--- NOTE | 2023-07-24 22:17 | PROVIDER PROGRESS NOTE ---
Subjective - Prog Note Date Prog Note Date: 07/24/23 Prog Note Time: 19:00 - Subjective Pt reports feeling: Improved (baby going to her room, out of nursery. Patient feeling quite well considering all she has been thru today. mom in room for support.) Objective - Vital Signs/Intake & Output Vital Signs: Vital Signs x48h Temp Pulse Resp BP Pulse Ox 07/24/23 21:22 98.5 F 86 16 114/57 L 98 07/24/23 17:00 97.5 F L 77 16 119/64 98 Intake & Output: Intake & Output 07/21/23 07/22/23 07/23/23 07/24/23 23:59 23:59 23:59 23:59 Intake Total 2653.505 6745.930 Output Total 605 Balance 0537.245 3431.930 - Lab Results Fish Bones: 07/22/23 14:00
[2023-07-25] MEDS: ACETAMINOPHEN 500 MG TABLET PO SCH ×3 (00:43→17:03)
[2023-07-25] MEDS: KETOROLAC 30 MG/ML VIAL IVP SCH (02:47)
[2023-07-25] MEDS: oxyCODONE 5 MG TABLET PO PRN ×5 (02:47→21:05)
[2023-07-25 05:46] LABS: HCT - HEMATOCRIT 27.4 % (37.0-47.0); HGB - HEMOGLOBIN 9.1 g/dL (12.0-16.0); MEAN CORPUSCULAR HEMOGLOBIN 32.6 pg (27.0-31.0); MEAN CORPUSCULAR HGB CONC 33.2 g/dL (32.0-36.0); MEAN CORPUSCULAR VOLUME 98.2 fL (81.0-99.0); RED BLOOD COUNT 2.79 10^6/uL (4.20-5.40); RED CELL DISTRIBUTION WIDTH 13.5 % (12.0-15.0); WHITE BLOOD COUNT 18.2 x10^3/uL (4.8-10.8)
[2023-07-25] MEDS: IBUPROFEN 600 MG TABLET PO SCH ×3 (09:01→21:05)
[2023-07-25] MEDS: DOCUSATE SODIUM 100 MG CAPSULE PO SCH (09:01)
[2023-07-25] MEDS ORDERED: IRON DEXTRAN 1,000 MG in SODIUM CHLORIDE 0.9% 250 ML IV ONE (14:09)
--- NOTE | 2023-07-25 19:41 | PROVIDER PROGRESS NOTE ---
Subjective - Prog Note Date Prog Note Date: 07/25/23 Prog Note Time: 12:00 - Subjective Pt reports feeling: Improved Subjective: denies dizziness. able to get out of bed. eating. baby in room and working on feeding. now under lights for high bili. pain well controlled. Objective - Vital Signs/Intake & Output Vital Signs: Vital Signs x48h Temp Pulse Resp BP Pulse Ox 07/25/23 17:00 98.2 F 77 16 114/69 99 07/25/23 13:00 98.2 F 77 16 126/67 100 Intake & Output: Intake & Output 07/22/23 07/23/23 07/24/23 07/25/23 23:59 23:59 23:59 23:59 Intake Total 3111.453 9096.930 270 Output Total 605 1225 Balance 1958.531 3407.930 -955 - Objective Abdomen: positive: Other (appropriately tender. bandage still on wound. dry. can remove later.) Skin: positive: Color nml. negative: Pallor Extremities: positive: Non-tender, No pedal edema Neurologic/Psychiatric: positive: Oriented x3, Mood/affect nml - Lab Results Fish Bones: 07/25/23 05:37 Other Labs: Lab Results x24hrs 07/25/23 Range/Units 05:37 WBC 18.2 H (4.8-10.8) x10^3/uL RBC 2.79 L (4.20-5.40) 10^6/uL Hgb 9.1 L (12.0-16.0) g/dL Hct 27.4 L (37.0-47.0) % MCV 98.2 (81.0-99.0) fL MCH 32.6 H (27.0-31.0) pg MCHC 33.2 (32.0-36.0) g/dL RDW 13.5 (12.0-15.0) % Plt Count 156 (130-450) 10^3/uL MPV 9.0 (7.9-10.8) fL Assessment/Plan - Problem List (1) Delivery by section Impression: recovering well. baby improving as well. routine care. (2) Acute blood loss as cause of postoperative anemia Impression: no symptoms. will given 1000 mg iv iron
[2023-07-26] MEDS: ACETAMINOPHEN 500 MG TABLET PO SCH ×3 (01:03→18:22)
[2023-07-26] MEDS: oxyCODONE 5 MG TABLET PO PRN ×3 (01:03→21:51)
[2023-07-26] MEDS: IBUPROFEN 600 MG TABLET PO SCH ×3 (07:42→19:51)
[2023-07-26] MEDS: DOCUSATE SODIUM 100 MG CAPSULE PO SCH ×2 (09:56→21:52)
--- NOTE | 2023-07-26 15:46 | PROVIDER PROGRESS NOTE ---
Subjective - Prog Note Date Prog Note Date: 07/26/23 Prog Note Time: 15:43 - Subjective Pt reports feeling: Improved Subjective: Pt well, lochia appropriate, + amb, + void, + colton PO, + flatus Feeding going well -- breast and pumping and bottle Bonding with baby Denies: F/C/N/V/CP/SOB Denies: dizziness, weakness, lightheadedness, difficulty with ambulation, palpitations Denies: LOPEZ / visual changes Objective - Vital Signs/Intake & Output Intake & Output: Intake & Output 07/23/23 07/24/23 07/25/23 07/26/23 23:59 23:59 23:59 23:59 Intake Total 2632.079 8319.930 270 Output Total 605 1225 Balance 3539.964 2223.930 -955 - Objective General Appearance: positive: No acute distress, Alert Eyes Bilateral: positive: Normal inspection ENT: positive: ENT inspection nml Neck: positive: Nml inspection Respiratory: positive: Chest non-tender, No respiratory distress, Breath sounds nml Cardiovascular: positive: Regular rate & rhythm, No murmur, No gallop Abdomen: positive: Non-tender, Nml bowel sounds, No distention, Other (jazz 1 below U) Skin: positive: Color nml, No rash, Warm, Dry Extremities: positive: Non-tender, No pedal edema Neurologic/Psychiatric: positive: Oriented x3, Mood/affect nml - Lab Results Fish Bones: 07/25/23 05:37 Assessment/Plan - Problem List (1) Acute blood loss as cause of postoperative anemia Impression: add PO iron, asymptomatic (2) Delivery by section Impression: continue to advance post operative milestones met anticipate D/C home tomorrow reviewed events of labor and delivery and operation suffered traumatic - also [place] [facility]. Will discuss again tomorrow. She "never wants to go through that again." v alidated. and discouraged future attempt at vaginal delivery - based on CPD with 6# infant.
[2023-07-27] MEDS: ACETAMINOPHEN 500 MG TABLET PO SCH (02:18)
[2023-07-27] MEDS: IBUPROFEN 600 MG TABLET PO SCH ×2 (02:19→13:52)
[2023-07-27] MEDS: oxyCODONE 5 MG TABLET PO PRN (07:48)
[2023-07-27] MEDS: DOCUSATE SODIUM 100 MG CAPSULE PO SCH (07:48)
--- NOTE | 2023-07-27 13:21 | DISCHARGE SUMMARY ---
"Discharge Summary Admit Date: 07/22/23 Discharge Date: 07/27/23 Discharging Provider: kristi Primary Care Provider: kristi Code Status: Attempt Resuscitation Condition at Discharge: Good Discharge Disposition: 01 Home, Self Care - DIAGNOSES Admission Diagnoses: IUP @ 39w h/o IVF Discharge Diagnoses with Status of Each Condition: IUP @ 39w - resolved h/o IVF NRFHT failed VAVD stat 1LTCS all milestones met, ready to D/C home. - HPI History of Present Illness: pt doing well Pt well, lochia appropriate, + amb, + void, + colton PO, + flatus Feeding going well -- breast & pumping, less formula today. Bonding with baby Denies: F/C/N/V/CP/SOB Denies: dizziness, weakness, lightheadedness, difficulty with ambulation, palpitations Denies: LOPEZ / visual changes discharge instructions and precautions reviewed in detail reports ready to go home. all questions answered OK to D/C home with baby. - CONSULTS | PROCEDURES Procedures: IOL VAVD - failed 1LTCS post operative care - HOSPITAL COURSE Hospital Course: IOL with miso and then pitocin AROM pushing attempted VAVD 2'2 NRFHT that failed stat 1LTCS, uncomplicated routine post operative care - ALLERGIES Allergies/Adverse Reactions: Allergies Allergy/AdvReac Type Severity Reaction Status Date / Time No Known Drug Allergies Allergy Verified 07/24/23 08:29 - PHYSICAL EXAM AT DISCHARGE General Appearance: positive: No acute distress, Alert Eyes Bilateral: positive: Normal inspection ENT: positive: ENT inspection nml, Pharynx nml Neck: positive: Nml inspection Respiratory: positive: Chest non-tender, No respiratory distress, Breath sounds nml Cardiovascular: positive: Regular rate & rhythm, No murmur, No gallop Abdomen: positive: Non-tender, No distention, Other (jazz 1 below U, INC CDI - some swelling on R side, edema, no signs of infection.) Back: positive: Nml inspection Skin: positive: Color nml, No rash, Warm, Dry Extremities: positive: Non-tender, Full ROM, No pedal edema Neurologic/Psychiatric: positive: Oriented x3, Mood/affect nml - LABS Result Diagrams: 07/25/23 05:37 - QUALITY (Female Hip Fx Only) Was patient sent home on osteoporosis medication?: No - FOLLOW UP Follow Up: 1 week - dr. Rossi - TIME SPENT Time Spent in Discharge (Minutes): 30"
--- NOTE | 2023-07-27 13:31 | Discharge Plan ---
Discharge Plan Problem Reviewed?: Yes Disposition: Home, Self Care Condition: Good Prescriptions: oxyCODONE [Roxicodone] 5 mg PO Q4HR PRN #14 tab PRN Reason: Severe Pain 6 -10 Ibuprofen [Motrin] 600 mg PO Q6HR #60 tab Acetaminophen [Tylenol] 1,000 mg PO Q8H #60 tab Diet: Regular Activity Restrictions: No Restrictions No Smoking: If you smoke, Please STOP! Call for help.
[2023-07-27 14:30] VITALS: BP 132/76; O2SAT 100
--- NOTE | 2023-07-27 14:53 | Labor Flowsheet ---
Labor Flowsheet Datetime Report Generated by CPN: 07/27/2023 14:53 Datetime: 07/24/2023 07:55 MEDICATIONS Pitocin (milliunits): Discontinued Datetime: 07/24/2023 07:45 Frequency (min): 5-6 Quality: Moderate Duration (sec): 50-90 Pattern: Normal: <= 5 Contractions in 10 Minutes Resting Tone (Palpate): Relaxed ASSESSMENT A Monitor Mode: External US FHR Baseline Rate : 150 Variability: Minimal - Undetectable to <=5 bpm Accelerations: None Decelerations: Variable Category: Category II Datetime: 07/24/2023 07:40 Communication Comments: Dr. [place] (peds) bedside Datetime: 07/24/2023 07:37 COMMUNICATION Communication: Provider at Bedside Datetime: 07/24/2023 07:30 VITAL SIGNS NBP Sys/Sade/Mean (mmHg): 111 : 64 : 74 Pulse: 84 LaborFlag: Labor Datetime: 07/24/2023 07:26 Temperature (C): 37.5 Datetime: 07/24/2023 07:15 UTERINE ACTIVITY Monitor Mode: External Patient Position/Activity: Left Lateral Datetime: 07/24/2023 07:09 SpO2 (%): 100 Datetime: 07/24/2023 06:08 PATIENT CARE IV/Blood Work: IV Bolus Given ml @ 500 Datetime: 07/24/2023 06:05 Patient Care Comments: [place] Pushing Position: Laboring Down Stage 2 Comments: break from pushing Datetime: 07/24/2023 06:00 Provider Notified (Name): Dr. Flo Datetime: 07/24/2023 05:15 FHR Baseline Changes: No Baseline Change Datetime: 07/24/2023 04:51 STAGE 2 Pushing: Involuntary Pushing Datetime: 07/24/2023 02:46 VAGINAL EXAM Dilatation (cm): 10.0 Effacement (%): 100 Station: -1 Exam by: Dr. Rossi Membrane Status: Ruptured Membranes Ruptured Date/Time: 07/24/2023 02:46 Membranes Rupture Method: Artificial Amniotic Fluid Color: Clear Amniotic Fluid Amount: Small Datetime: 07/24/2023 02:37 Anesthesia Comments: DENTAL SCHEDULER @ bedside Datetime: 07/24/2023 01:05 Vaginal Bleeding: Normal Show Cervix, Consistency: Soft Cervix, Position: Midposition I/O Interventions: Liu Cath Inserted Datetime: 07/24/2023 00:09 Epidural Procedure Other: Pump Started Datetime: 07/24/2023 00:01 Epidural Procedure: Test Dose Datetime: 07/23/2023 23:51 ANESTHESIA Epidural Positioning: Sitting Datetime: 07/23/2023 22:39 Pain Goal: 5 Datetime: 07/23/2023 22:23 PAIN Pain Scale: 6 Pain Presence: Intermittent Pain Type: Contraction Pain Coping: Breathing Through Contractions Pain Assessment Comments: educ on nitrous,fentanyl and epidural. Pt wants to be checked then decid e on pain med. Datetime: 07/23/2023 22:22 Monitor Interventions for FHR: Ultrasound Adjusted Datetime: 07/23/2023 21:01 Comments: tracing MHR Datetime: 07/23/2023 18:45 Contraction Comments: coupling Datetime: 07/23/2023 17:30 Vaginal Exam Comments: no change Datetime: 07/23/2023 09:50 Cervical Ripening Agents: Cytotec @ Datetime: 07/23/2023 09:35 Medication Comments: LR bolus Datetime: 07/23/2023 07:20 MATERNAL ASSESSMENT Level of Consciousness: Alert DTR's/Clonus: DTRs 2+; No Clonus Headache: Denies Breath Sounds, Left: Clear and Equal Breath Sounds, Right: Clear and Equal Nausea/Vomiting: Denies RUQ Epigastric Pain: Denies Datetime: 07/23/2023 07:16 Pain Location: Abdomen; Back Pain Relief Measures: Comfort Measures Datetime: 07/23/2023 05:18 Respirations: 16 Temperature Route: Oral Datetime: 07/22/2023 23:04 Amniotic Fluid Odor: Normal Datetime: 07/22/2023 14:35 Stage of : Labor
== END 2023-07-27 14:48 | disposition home or self-care (01) | DRG 787 ==
LOC: FBP 13:32 → WFO 13:32 → FBP 14:35
PROVIDERS: ADMIT Obstetrics & Gynecology; ATTEND Obstetrics & Gynecology
PROC: 3E0DXGC Introduction of Other Therapeutic Substance into Mouth and Pharynx, External Approach (ICD-10-PCS; 2023-07-22)
PROC: 3E033VJ Introduction of Other Hormone into Peripheral Vein, Percutaneous Approach (ICD-10-PCS; 2023-07-23)
PROC: 10907ZC Drainage of Amniotic Fluid, Therapeutic from Products of Conception, Via Natural or Artificial Opening (ICD-10-PCS; 2023-07-24)
PROC: 10D00Z1 Extraction of Products of Conception, Low, Open Approach (ICD-10-PCS; principal; 2023-07-24 08:00)
DX: O76 Abnormality in fetal heart rate and rhythm complicating labor and delivery (principal); D62 Acute posthemorrhagic anemia; Z3A.39 39 weeks gestation of pregnancy; O66.5 Attempted application of vacuum extractor and forceps; Z37.0 Single live birth; O90.81 Anemia of the puerperium
CPT/HCPCS: 36415; 85025; 85027; 86850; 86900; 86901; A9270; J0131; J0330; J1170; J1750; J7120